=== PATIENT | female | born 1990 | race Caucasian/White ===

== ENCOUNTER 2019-03-31 08:07 | Emergency (ER) | payer MEDICAID ==
[~2019-03-31] VITALS: Ht 162.6 cm; Wt 56.8 kg
[2019-03-31 08:18] VITALS: BP 121/78
[2019-03-31 08:46] LABS: URINE HCG NEGATIVE (NEG)
[2019-03-31 08:48] LABS: COLOR,URINE ORANGE (Yellow); UA COLLECTION TYPE CLN CATCH MIDSTREAM
[2019-03-31 08:49] LABS: CLARITY,URINE SLIGHTLY CLOUDY (Clear)
[2019-03-31 09:02] LABS: MUCUS STRANDS FEW /LPF (Neg); SQUAMOUS EPITHELIAL CELL,UR MODERATE /LPF (FEW)
[2019-03-31 09:03] LABS: BACTERIA,URINE FEW /HPF (Neg)
[2019-03-31] MEDS ORDERED: CEPH-571 PO (09:34)
== END 2019-03-31 09:45 | disposition home or self-care (01) ==
LOC: ER 08:09
DX: N39.0 Urinary tract infection, site not specified (principal); F10.99 Alcohol use, unspecified with unspecified alcohol-induced disorder; Z79.2 Long term (current) use of antibiotics; Y90.9 Presence of alcohol in blood, level not specified
CPT/HCPCS: 81001; 81025; 87088; 99283

== ENCOUNTER 2022-04-08 20:13 | Emergency (ER) | payer MEDICAID ==
[~2022-04-08] VITALS: Ht 157.5 cm; Wt 70.0 kg
[~2022-04-08 20:13] MED LIST: CEPH-571 PO
[2022-04-09] MEDS ORDERED: LIDOCAINE 5% OINTMENT 35GM TP ONE (04:40)
[2022-04-09] MEDS ORDERED: LIDO30CR47 TOP (04:41)
[2022-04-09] MEDS ORDERED: CAPS60CR6 TP (04:41)
[2022-04-09 05:50] VITALS: BP 127/91
== END 2022-04-09 05:52 | disposition home or self-care (01) ==
LOC: ER 20:14
DX: G62.9 Polyneuropathy, unspecified (principal); Z88.8 Allergy status to other drugs, medicaments and biological substances; Z79.1 Long term (current) use of non-steroidal anti-inflammatories (NSAID); Z79.2 Long term (current) use of antibiotics
CPT/HCPCS: 99282